=== PATIENT | female | born 1965 | race Caucasian/White ===

== ENCOUNTER 2020-10-29 13:18 | Emergency (ER) | payer OTHER ==
[~2020-10-29] VITALS: Ht 167.6 cm; Wt 94.0 kg
[2020-10-29 13:24] VITALS: BP 150/87
--- NOTE | 2020-10-29 14:05 | RAD ---
XR HAND_RIGHT 3 VIEWS History: Pain after smashing in door. Comparison: None. Technique: 3 views of the right hand. Findings: Osseous mineralization is normal. Minimal degenerative changes at the interphalangeal joints. Subtle irregularity in the tuft of the index finger distal phalanx likely represents sequela of old injury. Subtle lucencies in the tuft of the middle finger distal phalanx. Otherwise no fracture or dislocatio n identified. Small calcific density on the aspect middle finger proximal interphalangeal joint likel y sequela of old collateral ligament injury. No focal soft tissue swelling. Impression: 1. Subtle lucencies in the tuft of the middle finger distal phalanx without significant displacement may represent left fracture versus artifactual appearance of normal cortical lines. Correlate with s ite of injury. Electronically signed by: Ehsan Pollock MD (10/29/2020 2:03 PM) [facility]
--- NOTE | 2020-10-29 14:24 | PHYS DOC ---
Past History Past Medical History: Depression Past Surgical History: Appendectomy Alcohol Use: Occasionally General Adult EDM: Chief Complaint: HAND PROBLEM HPI: HPI: Patient is a 55-year-old female who presents with right, middle finger pain. Patient states that she was trying to move a mail cart. Patient states her hand was inside the door, when the door slammed on her hand. Patient is reporting pain to her middle, knuckle, of her right hand. Patient is able to bend finger but it does produce pain. Patient denies taking anything for pain prior to arrival. Patient denies medical history. Review of Systems: Review of Systems: Constitutional: Denies fever or chills Eyes: Denies change in visual acuity HENT: Denies nasal congestion or sore throat Respiratory: Denies cough or shortness of breath Cardiovascular: Denies chest pain or edema GI: Denies abdominal pain, nausea, vomiting, bloody stools or diarrhea : Denies dysuria Musculoskeletal: Right, middle finger pain. Integument: Denies rash Neurologic: Denies headache, focal weakness or sensory changes Endocrine: Denies polyuria or polydipsia Lymphatic: Denies swollen glands Psychiatric: Denies depression or anxiety Allergies: Allergies: Allergies Coded Allergies Type Severity Reaction Last Updated Verified diphenhydramine Allergy Unknown 10/29/20 Yes Physical Exam: PE: Constitutional: Well developed, well nourished, no acute distress, non-toxic appearance. [] HENT: Normocephalic, atraumatic, bilateral external ears normal, oropharynx moist, no oral exudates, nose normal. [] Eyes: PERRLA, EOMI, conjunctiva normal, no discharge. [] Neck: Normal range of motion, no tenderness, supple, no stridor. [] Cardiovascular:Heart rate regular rhythm, no murmur [] Lungs & Thorax: Bilateral breath sounds clear to auscultation [] Abdomen: Bowel sounds normal, soft, no tenderness, no masses, no pulsatile masses. [] Skin: Warm, dry, no erythema, no rash. [] Back: No tenderness, no CVA tenderness. [] Extremities: Right, middle finger, knuckle pain. Swelling to right, middle finger. Neurologic: Alert and oriented X 3, normal motor function, normal sensory function, no focal deficits noted. [] Psychologic: Affect normal, judgement normal, mood normal. [] Current Patient Data: Vital Signs: Vital Signs Date Time Temp Pulse Resp B/P (MAP) Pulse Ox O2 Delivery O2 Flow Rate FiO2 10/29/20 13:24 98.4 103 16 150/87 (108) 97 Room Air EKG: EKG: [] Radiology/Procedures: Radiology/Procedures: []XR HAND_RIGHT 3 VIEWS History: Pain after smashing in door. Comparison: None. Technique: 3 views of the right hand. Findings: Osseous mineralization is normal. Minimal degenerative changes at the interphalangeal joints. Subtle irregularity in the tuft of the index finger distal phalanx likely represents sequela of old injury. Subtle lucencies in the tuft of the middle finger distal phalanx. Otherwise no fracture or dislocation identified. Small calcific density on the aspect middle finger proximal interphalangeal joint likely sequela of old collateral ligament injury. No focal soft tissue swelling. Impression: 1. Subtle lucencies in the tuft of the middle finger distal phalanx without significant displacement may represent left fracture versus artifactual appearance of normal cortical lines. Correlate with site of injury. Electronically signed by: Ehsan Pollock MD (10/29/2020 2:03 PM) [facility] Heart Score: Risk Factors: Risk Factors: DM, Current or recent (<one month) smoker, HTN, HLP, family history of CAD, obesity. Risk Scores: Score 0 - 3: 2.5% MACE over next 6 weeks - Discharge Home Score 4 - 6: 20.3% MACE over next 6 weeks - Admit for Clinical Observation Score 7 - 10: 72.7% MACE over next 6 weeks - Early Invasive Strategies Course & Med Decision Making: Course & Med Decision Making Pertinent Labs and Imaging studies reviewed. (See chart for details) []Subtle lucencies in the tuft of the middle finger distal phalanx without significant displacement may represent left fracture versus artifactual appearance of normal cortical lines. Correlate with site of injury. Finger appears to have an avulsion fracture to the medial finger. Ortho consulted for recommendation. Ibuprofen given for pain. Patient states "I do not want any narcotics". Spoke with Dr. Lopez at Ortho. He recommends splinting the finger but states patient does not need to be seen in the clinic. We will discharge patient home and follow-up with PCP for further concerns. Patient instructed to come back to the emergency room with worsening symptoms. Abram Disclaimer: Abram Disclaimer: This electronic medical record was generated, in whole or in part, using a voice recognition dictation system. Departure Departure: Impression: Primary Impression: Avulsion fracture Disposition: 01 DC HOME SELF CARE/HOMELESS Condition: GOOD Referrals: PCP,NO (PCP) Patient Instructions: Avulsion Fracture Additional Instructions: You were seen in the emergency room after injury to your right hand. Finger splint was applied to the injured finger. you can take ibuprofen at home for pain. Please return to the emergency room with worsening symptoms or concerns. Scripts Hydrocodone Bit/Acetaminophen (HYDROCODONE-APAP 5-325 ) 1 Each Tablet 1 TAB PO PRN Q6HRS PRN for PAIN for 3 Days, #12 TAB 0 Refills Prov: EBENEZER ROD APRN 10/29/20 EBENEZER ROD APRN Oct 29, 2020 14:24
[2020-10-29] MEDS ORDERED: HYDR-2155 PO (16:12)
[2020-10-29] MEDS ORDERED: IBUPROFEN 600 MG TABLET. PO ONE (16:15)
== END 2020-10-29 16:26 | disposition home or self-care (01) ==
LOC: ER 13:18
DX: S62.632A Displaced fracture of distal phalanx of right middle finger, initial encounter for closed fracture (principal); Z88.8 Allergy status to other drugs, medicaments and biological substances; W23.0XXA Caught, crushed, jammed, or pinched between moving objects, initial encounter; Y93.89 Activity, other specified; Y92.89 Other specified places as the place of occurrence of the external cause; Y99.8 Other external cause status
CPT/HCPCS: 29130; 73130; 99283

== ENCOUNTER → 2020-11-12 | Outpatient (CLI) | payer OTHER ==
[2020-10-29 13:24] VITALS: BP 150/87
[~2020-11-12] MED LIST: HYDR-2155 PO
--- NOTE | 2020-11-12 15:11 | RAD ---
EXAM: Right hand, 3 views. HISTORY: Pain. COMPARISON: 10/29/2020. FINDINGS: 3 views of the right hand are obtained. There is stable deformity of the tuft of the second distal phalanx, likely developmental or the sequela of remote injury. Fracture is seen. There is no foreign body. IMPRESSION: No acute osseous finding. Electronically signed by: Sary Little MD (11/12/2020 3:08 PM) [id number]
== END ==
LOC: PMG 14:29
PROVIDERS: ATTEND Family Medicine
DX: S62.652A Nondisplaced fracture of middle phalanx of right middle finger, initial encounter for closed fracture (principal); S62.609A Fracture of unspecified phalanx of unspecified finger, initial encounter for closed fracture; M21.831 Other specified acquired deformities of right forearm; X58.XXXA Exposure to other specified factors, initial encounter; Y92.89 Other specified places as the place of occurrence of the external cause; Y93.89 Activity, other specified; Y99.8 Other external cause status
CPT/HCPCS: 73130